=== PATIENT | female | born 1975 | race Caucasian/White ===

== ENCOUNTER 2017-04-04 09:34 | Inpatient (IN) | payer BC ==
[~2017-04-04] VITALS: Ht 175.3 cm; Wt 136.0 kg
[~2017-04-04 09:34] MED LIST: ADULT LOW DOSE81 M1 PO; GLUCOPHAGE500 MG PO; MULTIPLE VITAM1 EACH PO
[2017-04-04 13:25] VITALS: BP 148/107
[2017-04-04 14:14] LABS: POINT-OF-CARE METER ID UU14174212
[2017-04-04 20:53] VITALS: BP 133/73
[2017-04-04 22:53] LABS: HEMATOCRIT 33.5 % (36.0-46.0); MCH 26.4 PG (29.0-34.0); MCHC 31.3 G/DL (30.0-36.0); MCV 84.4 FL (83-99); MEAN PLAT.VOLUME 8.9 uM^3 (9.5-12.4); PLATELET COUNT 388 K/uL (156-360); RBC DIS.WIDTH-CV 12.8 % (11.8-14.6); RBC DIS.WIDTH-SD 39.5 % (39-53); RED BLOOD COUNT 3.97 M/uL (3.80-5.20)
[2017-04-04 22:58] LABS: WHITE BLOOD COUNT 13.2 K/uL (4.1-10.2)
[2017-04-04 23:15] LABS: ANION GAP 10 MEQ/L (2-14); CHLORIDE 103 MEQ/L (99-109); GFR ESTIMATE (CALCULATED) > 59 mL/min/; GLUCOSE 190 mg/dL (70-99); POTASSIUM 3.9 MEQ/L (3.7-5.4); SAMPLE HEMOLYSIS CHECK 0; SAMPLE ICTERIC CHECK 0; SAMPLE LIPEMIA CHECK 0; SODIUM 136 MEQ/L (136-147); UREA NITROGEN (BUN) 9 mg/dL (9-23)
[2017-04-04 23:40] VITALS: BP 141/89
[2017-04-05 04:32] VITALS: BP 135/73
[2017-04-05 06:36] LABS: HEMATOCRIT 31.7 % (36.0-46.0); MCH 26.6 PG (29.0-34.0); MCHC 31.5 G/DL (30.0-36.0); MCV 84.3 FL (83-99); MEAN PLAT.VOLUME 8.9 uM^3 (9.5-12.4); PLATELET COUNT 382 K/uL (156-360); RBC DIS.WIDTH-CV 12.8 % (11.8-14.6); RBC DIS.WIDTH-SD 38.9 % (39-53); RED BLOOD COUNT 3.76 M/uL (3.80-5.20)
[2017-04-05 06:59] LABS: ANION GAP 9 MEQ/L (2-14); CHLORIDE 102 MEQ/L (99-109); GFR ESTIMATE (CALCULATED) > 59 mL/min/; GLUCOSE 125 mg/dL (70-99); POTASSIUM 4.3 MEQ/L (3.7-5.4); SAMPLE HEMOLYSIS CHECK 0; SAMPLE ICTERIC CHECK 0; SAMPLE LIPEMIA CHECK 0; SODIUM 135 MEQ/L (136-147); UREA NITROGEN (BUN) 7 mg/dL (9-23)
[2017-04-05 08:10] VITALS: BP 150/78
[2017-04-05] MEDS ORDERED: LOVENOX40 MG/0.4 SC (09:04)
[2017-04-05 12:15] VITALS: BP 132/68
[2017-04-05 15:40] VITALS: BP 138/72
[2017-04-05 19:55] VITALS: BP 138/69
[2017-04-06 03:49] VITALS: BP 122/61
[2017-04-06 06:10] LABS: HEMATOCRIT 31.6 % (36.0-46.0); MCH 26.2 PG (29.0-34.0); MCHC 31.3 G/DL (30.0-36.0); MCV 83.6 FL (83-99); MEAN PLAT.VOLUME 8.7 uM^3 (9.5-12.4); PLATELET COUNT 365 K/uL (156-360); RBC DIS.WIDTH-CV 12.8 % (11.8-14.6); RBC DIS.WIDTH-SD 39.1 % (39-53); RED BLOOD COUNT 3.78 M/uL (3.80-5.20); WHITE BLOOD COUNT 9.7 K/uL (4.1-10.2)
[2017-04-06 06:59] LABS: ANION GAP 7 MEQ/L (2-14); CHLORIDE 101 MEQ/L (99-109); POTASSIUM 3.6 MEQ/L (3.7-5.4); SAMPLE HEMOLYSIS CHECK 0; SAMPLE ICTERIC CHECK 0; SAMPLE LIPEMIA CHECK 0; SODIUM 136 MEQ/L (136-147)
[2017-04-06 07:04] LABS: GFR ESTIMATE (CALCULATED) > 59 mL/min/; GLUCOSE 117 mg/dL (70-99); UREA NITROGEN (BUN) 8 mg/dL (9-23)
[2017-04-06 08:24] VITALS: BP 140/69
[2017-04-06 08:31] VITALS: BP 140/69
[2017-04-06] MEDS ORDERED: TRAMADOL HCL50 MG PO (09:27)
[2017-04-06] MEDS ORDERED: LOVENOX40 MG/0.4 SC ×2 (09:43→09:47)
== END 2017-04-06 10:34 | disposition home or self-care (01) | DRG 742 ==
LOC: 2SOUTH → 2EAST 12:46 → 2SOUTH 16:06 → 2EAST 20:24
PROVIDERS: Obstetrics & Gynecology Gynecologic Oncology
DX: N80.1 Endometriosis of ovary (principal); R19.09 Other intra-abdominal and pelvic swelling, mass and lump; N83.8 Other noninflammatory disorders of ovary, fallopian tube and broad ligament; E11.9 Type 2 diabetes mellitus without complications; M79.661 Pain in right lower leg; Z68.41 Body mass index [BMI] 40.0-44.9, adult
CPT/HCPCS: 36415; 80048; 82948; 85027; 86900; 86901; 86920; 88108; 88305; 88307; 88331; 93970; 94799; J0330; J0690; J1100; J1170; J1650; J1815; J1885; J2250; J2405; J2710; J2765; J3010; J7120

== ENCOUNTER 2018-05-08 07:10 | Day surgery (SDC) | payer BC ==
[~2018-05-08] VITALS: Ht 175.3 cm; Wt 140.6 kg
[~2018-05-08 07:10] MED LIST changes: +CENTRUM WOMEN1 EACH PO; +LEVOXYL88 MCG PO; +LOVENOX40 MG/0.4 SC; +MAGNESIUM400 M1 PO; +TRAMADOL HCL50 MG PO; +TURMERIC 500 M1 EACH PO; +VITAMIN B-122500 MCG SL; +VITAMIN D35000 UNIT PO
[2018-05-08 07:36] VITALS: BP 133/65
[2018-05-08] MEDS ORDERED: NORCO 5/3251 TABLET PO (12:37)
[2018-05-08 15:16] VITALS: BP 132/69
[2018-05-08 20:41] VITALS: BP 157/78
[2018-05-09 00:22] VITALS: BP 125/70
[2018-05-09 05:01] VITALS: BP 145/68
[2018-05-09 06:45] VITALS: BP 135/62
[2018-05-09 10:47] VITALS: BP 114/64
== END 2018-05-09 16:28 | disposition home or self-care (01) ==
LOC: SDC 07:10 → 2SOUTH 11:48 → SDC 12:35 → ENRESERV 14:37 → 2EAST 15:14
PROVIDERS: Surgery
PROC: 0WUF4JZ Supplement Abdominal Wall with Synthetic Substitute, Percutaneous Endoscopic Approach (ICD-10-PCS; principal; 2018-05-08)
DX: K43.0 Incisional hernia with obstruction, without gangrene (principal); E03.9 Hypothyroidism, unspecified; Z90.710 Acquired absence of both cervix and uterus; Z90.79 Acquired absence of other genital organ(s); Z90.722 Acquired absence of ovaries, bilateral; Z86.010 Personal history of colon polyps; Z80.0 Family history of malignant neoplasm of digestive organs; Z98.51 Tubal ligation status; E78.00 Pure hypercholesterolemia, unspecified; Z86.72 Personal history of thrombophlebitis; I83.93 Asymptomatic varicose veins of bilateral lower extremities; Z79.82 Long term (current) use of aspirin; Z80.49 Family history of malignant neoplasm of other genital organs; Z80.1 Family history of malignant neoplasm of trachea, bronchus and lung; Z83.3 Family history of diabetes mellitus; Z68.41 Body mass index [BMI] 40.0-44.9, adult
CPT/HCPCS: 82948; C1781; G0378; J0690; J1100; J1885; J2250; J2405; J2710; J2765; J3010; J3475; J7643; S0020

== ENCOUNTER 2018-05-10 22:18 | Emergency (ER) | payer BC ==
[~2018-05-10] VITALS: Ht 175.3 cm; Wt 147.2 kg
[~2018-05-10 22:18] MED LIST changes: +NORCO 5/3251 TABLET PO
[2018-05-10 22:56] LABS: HEMATOCRIT 36.8 % (36.0-46.0); HEMOGLOBIN 12.3 G/DL (11.9-15.5); MCH 30.6 PG (29.0-34.0); MCHC 33.4 G/DL (30.0-36.0); MCV 91.5 FL (83-99); PLATELET COUNT 263 K/uL (156-360); RBC DIS.WIDTH-CV 11.9 % (11.8-14.6); RBC DIS.WIDTH-SD 40.2 % (39-53); RED BLOOD COUNT 4.02 M/uL (3.80-5.20); WHITE BLOOD COUNT 8.2 K/uL (4.1-10.2)
[2018-05-10 23:02] LABS: INTER. NORMALIZED RATIO 1.1
[2018-05-10 23:05] LABS: PTT 28.9 SEC (25-37)
[2018-05-10 23:07] LABS: CHLORIDE 106 mEq/L (99-109); POTASSIUM 3.8 mEq/L (3.7-5.4); SODIUM 143 mEq/L (136-147)
[2018-05-10 23:08] LABS: MAGNESIUM 2.5 mg/dL (1.3-2.7)
[2018-05-10 23:10] LABS: GLUCOSE 112 mg/dL (70-99)
[2018-05-10 23:13] LABS: CREATININE 0.8 mg/dL (0.6-1.3); GFR ESTIMATE (CALCULATED) > 59 mL/min/; PHOSPHORUS 3.1 mg/dL (2.5-4.9)
[2018-05-10 23:14] LABS: UREA NITROGEN (BUN) 14 mg/dL (9-23)
[2018-05-11 00:59] LABS: TROP-I INTERPRETATION NEGATIVE; TROPONIN-I < 0.01 ng/mL (0.0-0.30)
[2018-05-11 02:04] VITALS: BP 143/75
== END 2018-05-11 01:44 | disposition home or self-care (01) ==
LOC: EME 22:18
PROVIDERS: Emergency Medicine
DX: R20.2 Paresthesia of skin (principal); Z98.890 Other specified postprocedural states; I10 Essential (primary) hypertension; M79.602 Pain in left arm; E78.5 Hyperlipidemia, unspecified; K21.9 Gastro-esophageal reflux disease without esophagitis; Z90.710 Acquired absence of both cervix and uterus; Z86.718 Personal history of other venous thrombosis and embolism
CPT/HCPCS: 71046; 80048; 83735; 84100; 84484; 85027; 85610; 85730; 93005; 93971; 99281; 99283